=== PATIENT | male | born 1985 | race Caucasian/White ===

== ENCOUNTER 2019-11-09 20:41 | Emergency (ER) | payer OTHER ==
[2019-11-09 20:57] VITALS: BP 124/87; PULSE 89; RESP 17; TEMP 98.1
--- NOTE | 2019-11-09 21:36 | ED ---
Alcohol HPI - General Chief Complaint: Alcohol Stated Complaint: ETOH Time Seen by Provider: 11/09/19 21:18 Source: patient, police, EMS Mode of arrival: EMS Limitations: no limitations - History of Present Illness Initial Comments: Jerrod is a pleasant 34-year-old gentleman who is brought to the ER today by [place] [employer] for medical clearance for incarceration. Patient admits to drinking today, denies any other ingestions, denies any intent to harm himself reports that he is a daily drinker. PD at bedside states they know the patient well month a refer to them is a resident of the detention, he is known to be an alcoholic. He is not known to have withdraw. denies any acute complaints or pain. Denies any recent injuries or falls. - Related Data Allergies Allergy/AdvReac Type Severity Reaction Status Date / Time No Known Allergies Allergy Verified 11/09/19 20:57 Review of Systems ROS Statement: Those systems with pertinent positive or pertinent negative responses have been documented in the HPI. ROS Other: All systems not noted in ROS Statement are negative. Past Medical History Past Medical History: No Reported History History of Any Multi-Drug Resistant Organisms: None Reported Past Surgical History: No Surgical Hx Reported Past Psychological History: Bipolar Smoking Status: Current every day smoker Past Alcohol Use History: Heavy Past Drug Use History: Marijuana General Exam - General Exam Comments Initial Comments: Physical Exam GENERAL: Patient is well-developed and well-nourished. Patient is nontoxic and well-hydrated and is in no distress. Strong odor of alcohol HENT: Normocephalic, Atraumatic. TMs normal bilaterally no hemotympanum No conti signs or raccoon eyes EYES: PERRL, EOMI PULMONARY: Unlabored respirations. No audible rales rhonchi or wheezing was noted. CARDIOVASCULAR: There is a regular rate and rhythm without any murmurs gallops or rubs. ABDOMEN: Soft and nontender with normal bowel sounds. SKIN: Skin is clear with no lesions or rashes and otherwise unremarkable. : Deferred NEUROLOGIC: Patient is alert and oriented x3. Moving all extremities spontaneously MUSCULOSKELETAL: Normal extremities with adequate strength and full range of motion. No lower extremity swelling or edema. No calf tenderness. PSYCHIATRIC: Normal psychiatric evaluation. 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 Patient has no physical signs of injury no complaints of injury or pain. Patient is noted to be intoxicated with a breath alcohol of 0.23. Pediapred bedside states he can take any patient with an alcohol of less than 0.3. They're comfortable taking him at this time. They know the patient well he doesn't have a history of acute withdrawal. Patient is medically cleared for discharge into police custody. Disposition Clinical Impression: Alcoholic intoxication Disposition: OTHER INSTITUTION NOT DEFINED Condition: Stable Instructions (If sedation given, give patient instructions): Alcohol Intoxication (ED) Is patient prescribed a controlled substance at d/c from ED?: No Referrals: None,Stated [Primary Care Provider] - 1-2 days - Out of Hospital Transfer - Req. Specs Out of Hospital Transfer - Requested Specifics: Other Non-Acute ([facility])
== END 2019-11-09 21:41 | disposition other institution (70) ==
LOC: EC 20:41
DX: F10.129 Alcohol abuse with intoxication, unspecified (principal); F17.200 Nicotine dependence, unspecified, uncomplicated
CPT/HCPCS: 82075; 99283

== ENCOUNTER 2022-05-27 21:41 | Emergency (ER) | payer OTHER ==
[2022-05-27 23:11] VITALS: BP 139/92; PULSE 111; RESP 18; TEMP 97.8
--- NOTE | 2022-05-27 23:37 | XR ---
EXAMINATION TYPE: XR ankle complete RT DATE OF EXAM: 05/27/2022 COMPARISON: NONE HISTORY: Pain TECHNIQUE: 3 views FINDINGS: Ankle mortise is anatomic. I see no fracture nor dislocation. Joint spaces are normal. Ther e is some soft tissue swelling over the lateral malleolus. IMPRESSION: No fracture. Mild soft tissue swelling.
[2022-05-28] MEDS ORDERED: KETOROLAC 15 MG/ML 1 ML VIAL IM STA (00:04)
--- NOTE | 2022-05-28 00:12 | ED ---
Lower Extremity Injury HPI - General Chief Complaint: Extremity Injury, Lower Stated Complaint: Ankle Injury, ETOH Time Seen by Provider: 05/27/22 23:40 Source: patient Mode of arrival: EMS Limitations: no limitations - History of Present Illness Initial Comments: Patient is a 36-year-old male presenting with chief complaint of right ankle pain. Patient states that earlier he was walking outside in the dark when he tripped and injured his ankle. Patient landed on his flank on inversion. He admits to some swelling and difficulty with ambulation and weightbearing. Range of motion is painful. He denies any numbness, tingling, weakness, discoloration. - Related Data Allergies Allergy/AdvReac Type Severity Reaction Status Date / Time No Known Allergies Allergy Verified 05/27/22 23:11 Review of Systems ROS Statement: Those systems with pertinent positive or pertinent negative responses have been documented in the HPI. ROS Other: All systems not noted in ROS Statement are negative. Past Medical History Past Medical History: No Reported History History of Any Multi-Drug Resistant Organisms: None Reported Past Surgical History: No Surgical Hx Reported Past Psychological History: Bipolar Smoking Status: Current every day smoker Past Alcohol Use History: Heavy Past Drug Use History: Marijuana General Exam Limitations: no limitations General appearance: alert, in no apparent distress Head exam: Present: atraumatic, normocephalic, normal inspection Eye exam: Present: normal appearance, EOMI. Absent: scleral icterus, periorbital swelling Neck exam: Present: normal inspection Right Ankle exam: Present: full ROM, tenderness, swelling. Absent: abrasion Neurovascular tendon exam: Present: no vascular compromise. Absent: motor deficit, sensory deficit Neurological exam: Present: alert, oriented X3, CN II-XII intact Psychiatric exam: Present: normal affect, normal mood Skin exam: Present: warm, dry, intact, normal color. Absent: rash Course Vital Signs 05/27/22 23:09 Temperature 97.8 F Pulse Rate 111 H Respiratory 18 Rate Blood Pressure 139/92 O2 Sat by Pulse 98 Oximetry Medical Decision Making - Medical Decision Making Patient is a 36-year-old male presenting with chief complaint of right ankle pain. Patient injured after tripping and landing on an inversion. He is complaining of swelling and difficulty with weightbearing and ambulation. On examination there is some significant swelling to the lateral portion of the ankle, patient has good range of motion, full sensation. Pulses are WNL. X-ray shows no acute fracture or dislocation. Patient is educated on supportive treatment with rest, ice, compression, elevation. Take Motrin and Tylenol as needed. Patient is provided with Steve wrap and ankle stirrup splint. Patient is offered crutches, he declined. Follow-up with PCP this week. Report back to ER if any new or worsening symptoms. Discussed return parameters answered all questions. Patient conveyed verbal understanding and agreed to the plan. My attending is Dr. Gar. Disposition Clinical Impression: Ankle sprain Disposition: HOME SELF-CARE Condition: Good Instructions (If sedation given, give patient instructions): Ankle Sprain (ED) Additional Instructions: Follow-up with PCP in one to 2 days. Report back to ER with any new or worsening symptoms. Rest, ice, compress, and elevate. Take Motrin and Tylenol as needed for pain control. Is patient prescribed a controlled substance at d/c from ED?: No Referrals: Jessi Johnson MD [REFERRING] - 1-2 days Time of Disposition: 00:12
== END 2022-05-28 00:23 | disposition home or self-care (01) ==
LOC: EC 21:41
DX: F17.200 Nicotine dependence, unspecified, uncomplicated (principal); S93.401A Sprain of unspecified ligament of right ankle, initial encounter; W01.0XXA Fall on same level from slipping, tripping and stumbling without subsequent striking against object, initial encounter

== ENCOUNTER 2022-11-30 21:43 | Emergency (ER) | payer OTHER ==
[2022-11-30 21:49] VITALS: BP 141/105; PULSE 98; RESP 16
--- NOTE | 2022-11-30 22:53 | ED ---
General Adult HPI - General Chief complaint: Alcohol Stated complaint: ETOH Time Seen by Provider: 11/30/22 21:54 Source: patient Mode of arrival: EMS Limitations: no limitations - History of Present Illness Initial comments: This patient is a 37-year-old man brought by ambulance after they responded to call for intoxicated person. When I review the patient, he admits to drinking alcohol. He states that he is concerned about right thumb injury. He states that over 2 weeks ago was closed in a door. He notes that it has been swollen and tender though the pain has improved since the time of the injury. Patient denies other injuries. Denies head injury. Onset/Timin -: week(s) Radiation: non-radiation Quality: aching Consistency: constant Improves with: rest Worsens with: movement Associated Symptoms: denies other symptoms Treatments Prior to Arrival: none - Related Data Allergies Allergy/AdvReac Type Severity Reaction Status Date / Time No Known Allergies Allergy Verified 11/30/22 21:45 Review of Systems ROS Statement: Those systems with pertinent positive or pertinent negative responses have been documented in the HPI. ROS Other: All systems not noted in ROS Statement are negative. Constitutional: Denies: fever, weakness Respiratory: Denies: cough, dyspnea Cardiovascular: Denies: chest pain, syncope Gastrointestinal: Denies: abdominal pain, vomiting Musculoskeletal: Reports: as per HPI, arthralgia Skin: Denies: rash Neurological: Denies: headache, weakness, numbness Past Medical History Past Medical History: No Reported History History of Any Multi-Drug Resistant Organisms: None Reported Past Surgical History: No Surgical Hx Reported Past Psychological History: Bipolar Smoking Status: Current every day smoker Past Alcohol Use History: Heavy Past Drug Use History: Marijuana General Exam Limitations: no limitations General appearance: alert, in no apparent distress Head exam: Present: atraumatic, normocephalic Eye exam: Present: normal appearance Respiratory exam: Present: normal lung sounds bilaterally. Absent: respiratory distress, wheezes, rales, rhonchi, stridor Cardiovascular Exam: Present: regular rate, normal rhythm, normal heart sounds. Absent: systolic murmur, diastolic murmur, rubs, gallop GI/Abdominal exam: Present: soft. Absent: distended, tenderness, guarding, rebound Extremities exam: Present: tenderness, other (Tenderness and swelling right thumb) Neurological exam: Present: alert Skin exam: Present: warm, dry, intact, normal color. Absent: rash Course Vital Signs 11/30/22 21:46 Pulse Rate 98 Respiratory 16 Rate Blood Pressure 141/105 O2 Sat by Pulse 98 Oximetry Medical Decision Making - Medical Decision Making Patient is 37-year-old man here brought here for suspected intoxication. Patient does admit to drinking alcohol. He while here requests evaluation of his thumb which does have chronic appearing deformity. Patient is sent for x-ray which I interpret as showing distal location of the distal phalanx and suspected fracture at the terminal end of the proximal phalanx. I did attempt a closed reduction at the bedside without success, and the patient declined to have further attempts made at this. I suspect that given the length of time it has been dislocated there is injury post soft tissue, that will require an OR reduction. Patient declined to have splinting. He states he will follow-up with the orthopedic surgeons. He will return here if there is problem with the follow-up plan Was pt. sent in by a medical professional or institution? @ no Did you speak to anyone other than the patient for history? @ EMS Did you review nursing and triage notes? @ -[agree Were old charts reviewed? @ -no Differential Diagnosis? @ - Differential diagnosis includes alcohol intoxication, for hand differential diagnosis includes dislocation and fracture EKG interpreted by me (3pts min.)? @ -[no X-rays interpreted by me (1pt min.)? @ -yes CT interpreted by me (1pt min.)? @ -no U/S interpreted by me (1pt. min.)? @ -[none] What testing was considered but not performed? (CT, X-rays, U/S, labs)? Why? @ [ What meds were considered but not given? Why? @ -[none] Did you discuss the management of the patient with other professionals? @ -no Did you reconcile home meds? @ -[none] Was smoking cessation discussed for >3mins.? @ -[none] Was critical care preformed (if so, how long)? @ -[none] Were there social determinants of health that impacted care today? How? (Homelessness, low income, unemployed, alcoholism, drug addiction, transportation, low edu. Level, literacy, decrease access to med. care, senior living, rehab)? @ -[There is alcohol abuse suspected Was there de-escalation of care discussed even if they declined? (Discuss DNR or withdrawal of care, Hospice)? @ -[no What co-morbidities impacted this encounter? (DM, HTN, Smoking, COPD, CAD, Cancer, CVA, Hep., AIDS, mental health diagnosis, sleep apnea, morbid obesity)? @ -none Was patient admitted / discharged? @Discharged Undiagnosed new problem with uncertain prognosis? @ -[none] Drug Therapy requiring intensive monitoring for toxicity (Heparin, Nitro, Insulin, Cardizem)? @ -[none] Were any procedures done? @ -[none] Diagnosis/symptom? @ -Alcohol intoxication / thumb dislocation and possible fracture Acute, or Chronic, or Acute on Chronic? @ -[Acute / chronic Uncomplicated (without systemic symptoms) or Complicated (systemic symptoms)? @ -[Uncomplicated Side effects of treatment? @ -[none] Exacerbation, Progression, or Severe Exacerbation] @ -[no] Poses a threat to life or bodily function? @ -[no] Disposition Clinical Impression: Proximal phalanx fracture of finger, Closed dislocation of phalanx of hand Disposition: HOME SELF-CARE Condition: Fair Instructions (If sedation given, give patient instructions): Hand Fracture (DC), Finger Dislocation (ED) Is patient prescribed a controlled substance at d/c from ED?: No Referrals: None,Stated [Primary Care Provider] - 1-2 days Charles Olmos DO [Doctor of Osteopathic Medicine] - 1-2 days
--- NOTE | 2022-11-30 23:52 | XR ---
EXAMINATION TYPE: XR hand complete RT DATE OF EXAM: 11/30/2022 COMPARISON: NONE HISTORY: Thumb pain TECHNIQUE: 3 views FINDINGS: The metacarpals are intact. Carpal bones are intact. There is a posterior dislocation of th e IP joint of the thumb. IMPRESSION: Posterior dislocation of the thumb at the IP joint. No fracture seen.
== END 2022-11-30 23:54 | disposition home or self-care (01) ==
LOC: EC 21:43
DX: S62.619A Displaced fracture of proximal phalanx of unspecified finger, initial encounter for closed fracture (principal); S63.004A Unspecified dislocation of right wrist and hand, initial encounter; S63.106A Unspecified dislocation of unspecified thumb, initial encounter; F17.200 Nicotine dependence, unspecified, uncomplicated; F12.90 Cannabis use, unspecified, uncomplicated; F31.9 Bipolar disorder, unspecified; W23.0XXA Caught, crushed, jammed, or pinched between moving objects, initial encounter
CPT/HCPCS: 99284

== ENCOUNTER 2023-07-06 00:51 | Emergency (ER) | payer OTHER ==
[2023-07-06 00:58] VITALS: BP 158/93; PULSE 114; RESP 18; TEMP 98.3
[2023-07-06] MEDS ORDERED: TOPICAL SKIN ADHESIVE 1 EACH AMP TOPICAL ONE (01:12)
--- NOTE | 2023-07-06 01:21 | ED ---
Medical Clearance HPI - General Chief complaint: Medical Clearance Stated complaint: Medical clearence Time Seen by Provider: 07/06/23 01:09 Source: patient, police, RN notes reviewed - History of Present Illness Initial comments: 37-year-old male with no significant past medical history presents to the emergency department with a chief complaint of medical clearance. Patient was being arrested by Jef moura and he quickly became combative and aggressive with the officer. He reports that he was getting his head against exceeding glass in the patrol car. He denies any specific complaints at this time. He does have a small laceration to his forehead. Denies dizziness, lightheadedness, loss of consciousness, anticoagulant use. Allergies/Adverse reactions: Allergies Allergy/AdvReac Type Severity Reaction Status Date / Time No Known Allergies Allergy Verified 11/30/22 21:45 Review of Systems ROS Statement: Those systems with pertinent positive or pertinent negative responses have been documented in the HPI. ROS Other: All systems not noted in ROS Statement are negative. Past Medical History Past Medical History: No Reported History History of Any Multi-Drug Resistant Organisms: None Reported Past Surgical History: No Surgical Hx Reported Past Psychological History: Bipolar Smoking Status: Current every day smoker Past Alcohol Use History: Heavy Past Drug Use History: Marijuana General Exam - General Exam Comments Initial Comments: General: Alert, in no acute distress Head: atraumatic normocephalic. Eyes PERRL, EOMI intact, mucous membranes moist, 1 cm superficial laceration to forehead. Respiratory: Lungs clear to auscultation bilaterally Cardiovascular: Heart rate regular rate and rhythm Abdominal: Soft without guarding or rebound Extremities: Normal inspection with full range of motion and normal capillary refill Neuroogic: alert and oriented 3, CN II-XII intact, able to ambulate with steady gait Skin: warm dry and intact with normal color Limitations: no limitations Course Vital Signs 07/06/23 00:55 Temperature 98.3 F Pulse Rate 114 H Respiratory 18 Rate Blood Pressure 158/93 O2 Sat by Pulse 98 Oximetry Medical Decision Making - Medical Decision Making Was pt. sent in by a medical professional or institution (, PA, FLEXO PRESS OPERATOR, urgent care, hospital, or prison...) When possible be specific @ -[No] Did you speak to anyone other than the patient for history (EMS, parent, family, police, friend...)? What history was obtained from this source @ -[facility] police department Did you review nursing and triage notes (agree or disagree)? Why? @ -[I reviewed and agree with nursing and triage notes] Were old charts reviewed (outside hosp., previous admission, EMS record, old E KG, old radiological studies, urgent care reports/EKG's, prison records)? Report findings @ -[No old charts were reviewed] Differential Diagnosis (chest pain, altered mental status, abdominal pain women, abdominal pain men, vaginal bleeding, weakness, fever, dyspnea, syncope, headache, dizziness, GI bleed, back pain, seizure, CVA, palpatations, mental h ealth, musculoskeletal)? @ -[not applicable] EKG interpreted by me (3pts min.). @ -[As above] X-rays interpreted by me (1pt min.). @ -[None done] CT interpreted by me (1pt min.). @ -CT brain negative for any evidence of intracranial process U/S interpreted by me (1pt. min.). @ -[None done] What testing was considered but not performed or refused? (CT, X-rays, U/S, labs)? Why? @ -[None] What meds were considered but not given or refused? Why? @ -[None] Did you discuss the management of the patient with other professionals (adriana crain i.eClara Conway, PA, FLEXO PRESS OPERATOR, lab, RT, psych nurse, social media marketing specialist, unified communications engineer, teacher, corporate banking officer, transplant case manager)? Give summary @ -[No] Was smoking cessation discussed for >3mins.? @ -[No] Was critical care preformed (if so, how long)? @ -[No] Were there social determinants of health that impacted care today? How? (Homelessness, low income, unemployed, alcoholism, drug addiction, transportation, low edu. Level, literacy, decrease access to med. care, usp, rehab)? @ -[No] Was there de-escalation of care discussed even if they declined (Discuss DNR or withdrawal of care, Hospice)? DNR status @ -[No] What co-morbidities impacted this encounter? (DM, HTN, Smoking, COPD, CAD, Cancer, CVA, ARF, Chemo, Hep., AIDS, mental health diagnosis, sleep apnea, morbid obesity)? @ -[None] Was patient admitted / discharged? Hospital course, mention meds given and route, prescriptions, significant lab abnormalities, going to OR and other pertinent info. @ -Discharged. This is an aggressive 37-year-old male who presents the emergency department via PD escort with a chief complaint of medical clearance. Patient had a thorough history and physical exam performed on the ED. Physical exam reveals mild swelling to the forehead region with 1 cm superficial laceration with bleeding controlled. Patient had imaging performed which was negative. Patient was medically cleared. Patient was discharged with return precautions discussed. Case discussed with DIONNE Holm who agrees with plan of care Undiagnosed new problem with uncertain prognosis? @ -[No] Drug Therapy requiring intensive monitoring for toxicity (Heparin, Nitro, Insulin, Cardizem)? @ -[No] Were any procedures done? @ -[No] Diagnosis/symptom? @ -Medical Clearance Acute, or Chronic, or Acute on Chronic? @ -Acute Uncomplicated (without systemic symptoms) or Complicated (systemic symptoms)? @ -Uncomplicated Side effects of treatment? @ -[No] Exacerbation, Progression, or Severe Exacerbation? @ -[No] Poses a threat to life or bodily function? How? (Chest pain, [place], [place], pneumonia, PE, COPD, DKA, ARF, appy, cholecystitis, CVA, Diverticulitis, Homicidal, Suicidal, threat to staff... and all critical care pts) @ -Low likelihood Disposition Clinical Impression: Medical clearance for incarceration Disposition: HOME SELF-CARE Instructions (If sedation given, give patient instructions): Head Injury (ED) Additional Instructions: Please return to the nearest emergency department if symptoms worsen or persist Is patient prescribed a controlled substance at d/c from ED?: No Referrals: None,Stated [Primary Care Provider] - 1-2 days Time of Disposition: 01:50
--- NOTE | 2023-07-06 01:40 | CT ---
EXAM: CT Head Without Intravenous Contrast CLINICAL HISTORY: ITS.REASON CT Reason: head injury TECHNIQUE: Axial computed tomography images of the head/brain without intravenous contrast. CTDI is 45.2 mGy and DLP is 1008 mGy-cm. This CT exam was performed using one or more of the following dose reduction techniques: automated exposure control, adjustment of the mA and/or kV according to patient size, and/or use of iterative reconstruction technique. COMPARISON: No relevant prior studies available. FINDINGS: Brain: Unremarkable. No hemorrhage. No significant white matter disease. No edema. Ventricles: Unremarkable. No ventriculomegaly. Bones/joints: Unremarkable. No acute fracture. Soft tissues: Subtle superficial scalp contusive changes overlie the anterior high frontal region at the midline. No hematoma. No radiopaque foreign body. Sinuses: Unremarkable as visualized. No acute sinusitis. Mastoid air cells: Unremarkable as visualized. No mastoid effusion. IMPRESSION: 1. No acute intracranial process identified. 2. Subtle superficial scalp contusive changes overlie the anterior high frontal region at the midline. No hematoma. No radiopaque foreign body. No skull fracture. EXAM: CT Cervical Spine Without Intravenous Contrast CLINICAL HISTORY: ITS.REASON CT Reason: head injury TECHNIQUE: Axial computed tomography images of the cervical spine without intravenous contrast. CTDI is 13. mGy and DLP is 380.6 mGy-cm. This CT exam was performed using one or more of the following dose reduction techniques: automated exposure control, adjustment of the mA and/or kV according to patient size, and/or use of iterative reconstruction technique. COMPARISON: No relevant prior studies available. FINDINGS: Vertebrae: The vertebral bodies are intact without acute osseous traumatic injury. There is straightening of the normal cervical lordosis. No anterolisthesis or retrolisthesis is identified. The facet joints are well aligned without subluxation or dislocation. The pedicles, transverse processes and spinous processes are intact. Discs/spinal canal/neural foramina: Chronic disc marginal hypertrophic osteophyte changes, most notable at C5-6 and C6-7. No acute findings. No osseous spinal canal stenosis. Soft tissues: Unremarkable. IMPRESSION: No acute osseous traumatic injury or significant abnormal alignment involving the cervical spine.
== END 2023-07-06 02:10 | disposition home or self-care (01) ==
LOC: EC 00:51
DX: Z02.89 Encounter for other administrative examinations (principal); S01.81XA Laceration without foreign body of other part of head, initial encounter; F17.200 Nicotine dependence, unspecified, uncomplicated; F12.90 Cannabis use, unspecified, uncomplicated; W22.8XXA Striking against or struck by other objects, initial encounter
CPT/HCPCS: 70450; 72125; 99283

== ENCOUNTER 2024-09-29 14:47 | Emergency (ER) | payer OTHER ==
[2024-09-29 15:05] VITALS: TEMP 98.3
--- NOTE | 2024-09-29 16:44 | ED ---
General Adult HPI - General Chief complaint: Psychiatric Symptoms Stated complaint: mental health Time Seen by Provider: 09/29/24 15:00 Source: patient Mode of arrival: ambulatory Limitations: no limitations - History of Present Illness Initial comments: Dictation was produced using [employer] dictation software. please excuse any grammatical, word or spelling errors. 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 States that he has been having on and off mood swings. States that he feels slightly off. Denies any suicidal homicidal ideation. A conversation with his branch lending officer who recommended he come to the ER for psychiatric evaluation. Patient denies any visual auditory hallucinations. Patient denies any psychiatric hospitalizations. The ROS documented in this emergency department record has been reviewed and confirmed by me. Those systems with pertinent positive or negative responses have been documented in the HPI. All other systems are other negative and/or noncontributory. - Related Data Home Medications Medication Instructions Recorded Confirmed No Known Home Medications 09/29/24 09/29/24 Allergies Allergy/AdvReac Type Severity Reaction Status Date / Time No Known Allergies Allergy Verified 09/29/24 17:04 Review of Systems ROS Statement: Those systems with pertinent positive or pertinent negative responses have been documented in the HPI. ROS Other: All systems not noted in ROS Statement are negative. Past Medical History Past Medical History: No Reported History History of Any Multi-Drug Resistant Organisms: None Reported Past Surgical History: No Surgical Hx Reported Past Psychological History: Bipolar Smoking Status: Former smoker, Vaper Past Alcohol Use History: None Reported, Heavy Past Drug Use History: Marijuana General Exam - General Exam Comments Initial Comments: General: Well-appearing, nontoxic, no acute distress. Head: Normocephalic, atraumatic Eyes: PERRLA, EOMI ENT: Airway patent Chest: Nonlabored breathing Skin: No visual rash, normal skin tone Neuro: Alert and oriented 3 Musculoskeletal: No gross abnormalities Limitations: no limitations Course Vital Signs 09/29/24 15:01 Temperature 98.3 F Pulse Rate 80 Respiratory 18 Rate Blood Pressure 118/86 O2 Sat by Pulse 96 Oximetry Medical Decision Making - Medical Decision Making Was pt. sent in by a medical professional or institution (, PA, UX VISUAL DESIGNER, urgent care, hospital, or prison...) When possible be specific @ -No Did you speak to anyone other than the patient for history (EMS, parent, family, police, friend...)? What history was obtained from this source @ -No Did you review nursing and triage notes (agree or disagree)? Why? @ -I reviewed and agree with nursing and triage notes Were old charts reviewed (outside hosp., previous admission, EMS record, old EKG, old radiological studies, urgent care reports/EKG's, prison records)? Report findings @ -No old charts were reviewed Differential Diagnosis (chest pain, altered mental status, abdominal pain women, abdominal pain men, vaginal bleeding, musculoskeletal, weakness, fever, dyspnea, syncope, headache, dizziness, GI bleed, back pain, seizure, CVA, palpatations, mental health)? @ -Differential Mental Health: Depression, anxiety, bipolar, psychosis, schizophrenia, borderline personality, situational depression, adjustment disorder, behavioral disorder, brain tumor, malingering, substance abuse, encephalopathy, medication reaction, dementia, hypothyroidism, degenerative neurologic disorder, lupus.... This is not meant to be all-inclusive list EKG interpreted by me (3pts min.). @ -None done X-rays interpreted by me (1pt min.). @ -None done CT interpreted by me (1pt min.). @ -None done U/S interpreted by me (1pt. min.). @ -None done What testing was considered but not performed or refused? (CT, X-rays, U/S, labs)? Why? @ -None What meds were considered but not given or refused? Why? @ -None Was smoking cessation discussed for >3mins.? @ -No Were there social determinants of health that impacted care today? How? (Homelessness, low income, unemployed, alcoholism, drug addiction, transportation, low edu. Level, literacy, decrease access to med. care, half-way, rehab)? @ -No Was there de-escalation of care discussed even if they declined (Discuss DNR or withdrawal of care, Hospice)? DNR status @ -No What co-morbidities impacted this encounter? (DM, HTN, Smoking, COPD, CAD, Cancer, CVA, ARF, Chemo, Hep., AIDS, mental health diagnosis, sleep apnea, morbid obesity)? @ -None Was patient admitted / discharged? Hospital course, mention meds given and route, prescriptions, significant lab abnormalities, going to OR and other pertinent info. @ -39-year-old pleasant well-appearing male presents to the emergency department for psychiatric evaluation. Vital signs stable. Patient denies any suicidal homicidal ideation. Patient not psychotic. He came here as a recommendation by his branch lending officer for psychiatric evaluation. Patient medically cleared for EPS. Patient was eval by EPS. Recommendations was for safety plan and discharge. Did you discuss the management of the patient with other professionals (professionals i.e. , PA, UX VISUAL DESIGNER, lab, RT, psych nurse, adoption social worker, inpatient coder, teacher, marketing officer, mattress spring encaser)? Give summary @ -No Was critical care preformed (if so, how long)? @ -No Undiagnosed new problem with uncertain prognosis? @ -No Drug Therapy requiring intensive monitoring for toxicity (Heparin, Nitro, Insulin, Cardizem)? @ -No Were any procedures done? @ -No Diagnosis/symptom? Acute, or Chronic, or Acute on Chronic? Uncomplicated (without systemic symptoms) or Complicated (systemic symptoms)? @ -Psychiatric evaluation Side effects of treatment? @ -No Exacerbation, Progression, or Severe Exacerbation? @ -No Poses a threat to life or bodily function? How? (Chest pain, [place], [place], pneumonia, PE, COPD, DKA, ARF, appy, cholecystitis, CVA, Diverticulitis, Homicidal, Suicidal, threat to staff... and all critical care pts) @ -No Disposition Clinical Impression: Depression Disposition: HOME SELF-CARE Condition: Good Instructions (If sedation given, give patient instructions): Medical Clearance for Psychiatric Care (ED) Is patient prescribed a controlled substance at d/c from ED?: No Referrals: None,Stated [Primary Care Provider] - 1-2 days Time of Disposition: 17:42
[2024-09-29 17:57] VITALS: BP 112/80; PULSE 84; RESP 23
== END 2024-09-29 18:04 | disposition home or self-care (01) ==
LOC: EC 14:47
CPT/HCPCS: 82075; 99284

== ENCOUNTER 2025-02-24 21:59 | Emergency (ER) | payer OTHER ==
[2025-02-24 22:05] VITALS: TEMP 98.9
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
--- NOTE | 2025-02-24 22:57 | CT ---
EXAM: CT Head Without Intravenous Contrast CLINICAL HISTORY: ITS.REASON CT Reason: head injury TECHNIQUE: Axial computed tomography images of the head/brain without intravenous contrast. CTDI is 49.2 mGy and DLP is 1176.4 mGy-cm. This CT exam was performed using one or more of the following dose reduction techniques: automated exposure control, adjustment of the mA and/or kV according to patient size, and/or use of iterative reconstruction technique. COMPARISON: 07/06/2023. FINDINGS: Brain: Unremarkable. No hemorrhage. No significant white matter disease. No edema. Ventricles: Unremarkable. No ventriculomegaly. Bones/joints: Unremarkable. No acute fracture. Soft tissues: Trace right prefrontal extracalvarial soft tissue hematoma. Sinuses: Unremarkable as visualized. No acute sinusitis. Mastoid air cells: Unremarkable as visualized. No mastoid effusion. IMPRESSION: No acute findings in the head/brain.
[2025-02-24 23:35] VITALS: BP 120/62; PULSE 97; RESP 20
== END 2025-02-24 23:35 | disposition home or self-care (01) ==
LOC: EC 21:59
DX: S09.90XA Unspecified injury of head, initial encounter (principal); F10.129 Alcohol abuse with intoxication, unspecified; F17.290 Nicotine dependence, other tobacco product, uncomplicated; Y90.9 Presence of alcohol in blood, level not specified
CPT/HCPCS: 70450; 99283